=== PATIENT | female | born 1975 | race Caucasian/White ===

== ENCOUNTER 2016-07-08 22:12 | Emergency (ER) | payer SELFPAY ==
[~2016-07-08] VITALS: Ht 195.6 cm; Wt 114.2 kg
[2016-07-08 22:16] VITALS: BP 176/97
[2016-07-08] MEDS ORDERED: DEXAMETHASONE 4 MG TABLET PO ONE (23:00)
[2016-07-08] MEDS ORDERED: CARBAMIDE PEROXIDE EAR DROPS 6.5%, 15ML RIGHT EAR ONE (23:00)
[2016-07-08] MEDS ORDERED: DEXAMETHASONE 4 MG TABLET ONE (23:01)
== END 2016-07-08 23:34 | disposition home or self-care (01) ==
LOC: ED 23:24
DX: H61.21 Impacted cerumen, right ear (principal); J02.9 Acute pharyngitis, unspecified
CPT/HCPCS: 99283